=== PATIENT | female | born 2000 | race Asian ===

== ENCOUNTER 2021-01-02 10:31 | Emergency (ER) | payer BC ==
[~2021-01-02] VITALS: Ht 170.2 cm; Wt 65.9 kg
[2021-01-02] MEDS ORDERED: NS 1,000 ML IV ONE ×2 (11:05→13:55)
[2021-01-02 11:19] LABS: VENOUS BASE EXCESS -9.6 (-2.0-2.0); VENOUS O2 SATURATION 51.4 % (60.0-80.0); VENOUS PARTIAL PRESSURE CO2 45.1 mmHg (38.0-50.0); VENOUS PARTIAL PRESSURE O2 31.3 mmHg (30.0-50.0); VENOUS PH 7.218 UNITS (7.330-7.430); VENOUS TOTAL CO2 19.3 MEQ/L (24.0-28.0)
[2021-01-02 11:26] LABS: BASO # 0.1 10^3/uL (0.0-0.2); BASO % 0.8 % (0.0-1.0); EOS # 0.1 10^3/uL (0.0-0.5); EOS % 1.7 % (0.0-3.0); HEMATOCRIT 47.3 % (36.0-47.0); HEMOGLOBIN 15.1 g/dl (12.0-15.5); LYMPH # 1.5 10^3/uL (1.5-5.0); LYMPH % 19.3 % (24.0-44.0); MEAN CORPUSCULAR HGB CONC 31.9 g/dl (32.0-36.5); MONO # 0.3 10^3/uL (0.0-0.8); MONO % 3.3 % (2.0-8.0); NEUTROPHILS # 5.7 10^3/uL (1.5-8.5); NEUTROPHILS % 74.4 % (36.0-66.0); PLATELET COUNT, AUTOMATED 286 10^3/uL (150-450); RED BLOOD COUNT 5.03 10^6/uL (4.00-5.40); WHITE BLOOD COUNT 7.7 10^3/uL (4.0-10.0)
[2021-01-02 12:05] LABS: ALBUMIN 4.7 GM/DL (3.2-5.2); BILIRUBIN,DIRECT 0.2 MG/DL (0.0-0.2); BILIRUBIN,TOTAL 0.8 MG/DL (0.2-1.0); TOTAL PROTEIN 8.4 GM/DL (6.4-8.2)
[2021-01-02 15:55] LABS: VENOUS BASE EXCESS -9.6 (-2.0-2.0); VENOUS O2 SATURATION 86.4 % (60.0-80.0); VENOUS PARTIAL PRESSURE CO2 34.5 mmHg (38.0-50.0); VENOUS PARTIAL PRESSURE O2 55.7 mmHg (30.0-50.0); VENOUS PH 7.285 UNITS (7.330-7.430); VENOUS STANDARD HCO3 16.7 MEQ/L; VENOUS TOTAL CO2 17.1 MEQ/L (24.0-28.0)
[2021-01-02 16:24] LABS: BLOOD UREA NITROGEN 12 MG/DL (7-18); CALCIUM LEVEL 8.1 MG/DL (8.5-10.1); CARBON DIOXIDE LEVEL 21 MEQ/L (21-32); CHLORIDE LEVEL 106 MEQ/L (98-107); CREATININE FOR GFR 0.74 MG/DL (0.55-1.30); GLOMERULAR FILTRATION RATE > 60.0 (>60); GLUCOSE, FASTING 94 MG/DL (70-100); POTASSIUM SERUM 4.3 MEQ/L (3.5-5.1); SODIUM LEVEL 138 MEQ/L (136-145)
[2021-01-02 17:09] VITALS: BP 108/58
--- NOTE | 2021-01-02 17:37 | ECGEPIP ---
[facility] - ED Test Date: 2021-01-02 Pat Name: RAE MCNEILL Department: Room: - Gender: Female [employer]: : [id number] Requested By: VICENTE Potts PA-C Order Number: [id number] Reading MD: Sienna Pagan Measurements Intervals [place] Rate: 91 P: 81 IA: 138 QRS: 88 QRSD: 78 T: 52 QT: 358 QTc: 440 Interpretive Statements Normal sinus rhythm No prior Electronically Signed on 01-02-2021 17:36:41 EDT by Sienna Pagan
== END 2021-01-02 17:12 | disposition home or self-care (01) ==
LOC: M ED 10:31
DX: E10.10 Type 1 diabetes mellitus with ketoacidosis without coma (principal); E10.65 Type 1 diabetes mellitus with hyperglycemia; Z88.1 Allergy status to other antibiotic agents
CPT/HCPCS: 36415; 80047; 80048; 80076; 81001; 82010; 82803; 83036; 83605; 83690; 83930; 84702; 85025; 93005; 93041; 96360; 96361; 99285; U0002